=== PATIENT | female | born 1970 | race Caucasian/White ===

== ENCOUNTER 2021-11-20 21:24 | Emergency (ER) | payer OTHER ==
[~2021-11-20] VITALS: Ht 144.8 cm; Wt 62.1 kg
[2021-11-20 21:56] VITALS: BP 149/75
--- NOTE | 2021-11-20 22:22 | NUR ---
PATIENT AMBULATED TO BED 7
[2021-11-20] MEDS ORDERED: KETOROLAC 15 MG/ML VIAL IM ONE (23:15)
--- NOTE | 2021-11-20 23:23 | NUR ---
51/F BIB SELF FROM HOME C/C RIGHT HAND PAIN S/P WORK INJURY X7/. PER PATIETN IS SHARP 11/07 AND RAD TO THE RIGHT UPPER ARM. PER PATIENT "I FEEL NUMNESS AND TINGLING WHEN I MOVE IT, AND IT HAS PROGRESSIVELY GOTTEN WORSE." SHE RECEIVED MOTRIN AND WAS TOLD TO ICE HAND BY AGENCY WORK NURSE. PATIENT IS WEARING AN ARM BRACE. RIGHT HAND IS SLIGHTLY SWOLLEN WITH DISCOLORATION NOTED ON IT. PATIENT IS AAOX4 AND AMBULATORY. PLACED IN BED . BED LOW AND LOCKED. ALL NEEDS MET. PMHX DM, ASTHMA, FATTY LIVER MEDS METFORMIN NKA
--- NOTE | 2021-11-21 | NUR ---
Patient being evaluated by physician at bedside.
[2021-11-21] MEDS ORDERED: ACET-10509 PO (00:24)
[2021-11-21] MEDS ORDERED: EMLAC TP (00:27)
[2021-11-21 00:57] VITALS: BP 136/70
--- NOTE | 2021-11-21 00:57 | NUR ---
Patient discharged with v/s stable. Written and verbal after care instructions given and explained. Patient alert, oriented and verbalized understanding of instructions. Ambulatory with steady gait. All questions addressed prior to discharge. ID band removed. Patient advised to follow up with PMD. Rx of ACETAMINOPHEN AND LIDOCAINE/PRILOCAINE given.
--- NOTE | 2021-11-21 00:57 | NUR ---
Chart checked and completed.
== END 2021-11-21 00:57 | disposition home or self-care (01) ==
LOC: MED 21:24
DX: S60.221A Contusion of right hand, initial encounter (principal); K21.9 Gastro-esophageal reflux disease without esophagitis; J45.909 Unspecified asthma, uncomplicated; E11.9 Type 2 diabetes mellitus without complications; Z79.4 Long term (current) use of insulin; Z79.899 Other long term (current) drug therapy; Z98.890 Other specified postprocedural states; W18.30XA Fall on same level, unspecified, initial encounter; Y93.89 Activity, other specified; Y92.89 Other specified places as the place of occurrence of the external cause; Y99.8 Other external cause status
CPT/HCPCS: 29125; 73090; 96372; 99283; J1885; Q0092

== ENCOUNTER 2022-07-29 18:00 | Emergency (ER) | payer OTHER ==
[~2022-07-29] VITALS: Ht 147.3 cm; Wt 63.0 kg
[~2022-07-29 18:00] MED LIST: ACET-10509 PO; EMLAC TP
[2022-07-29 18:10] VITALS: BP 130/89
[2022-07-29] MEDS ORDERED: METH4TAB1 PO (18:20)
--- NOTE | 2022-07-29 18:20 | NUR ---
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 DR JORDAN AT TRIAGE FOR EVAL KRIS PMH: DM, LUPUS, HDL
--- NOTE | 2022-07-29 18:24 | NUR ---
Patient discharged with v/s stable. Written and verbal after care instructions BELLS PALSY given and explained. Patient alert, oriented and verbalized understanding of instructions. Ambulatory with steady gait. All questions addressed prior to discharge. ID band removed. Patient advised to follow up with PMD. Rx of PREDNISONE given. Patient educated on indication of medication including possible reaction and side effects. Opportunity to ask questions provided and answered.
== END 2022-07-29 18:24 | disposition home or self-care (01) ==
LOC: MED 18:00
DX: G51.0 Bell's palsy (principal); J45.909 Unspecified asthma, uncomplicated; K21.9 Gastro-esophageal reflux disease without esophagitis; Z79.899 Other long term (current) drug therapy
CPT/HCPCS: 99283